=== PATIENT | female | born 1955 | race Caucasian/White ===

== ENCOUNTER → 2023-10-17 07:25 | Outpatient (REF) | payer BC, MEDICARE, SELFPAY ==
[2023-10-17 09:18] LABS: ALT (SGPT) 20 U/L (0-35); AST (SGOT) 22 U/L (14-36); Alkaline Phosphatase 74 U/L (38-126); Total Bilirubin 0.4 mg/dl (0.2-1.3); Total Protein 6.4 g/dl (6.3-8.2)
[2023-10-17 09:43] LABS: Hepatitis B Surface Antigen Negative (Negative)
[2023-10-17 10:00] LABS: Hepatitis B Surface Antibody Negative; Hepatitis C Antibody Negative (Negative)
[2023-10-17 10:26] LABS: Hepatitis A Antibody, Total Negative (Negative)
== END ==
LOC: REG 07:25
PROVIDERS: ATTENDING PHYSICIAN Internal Medicine
DX: K76.0 Fatty (change of) liver, not elsewhere classified (principal)
CPT/HCPCS: 36415; 80076; 86706; 86708; 86803; 87340

== ENCOUNTER → 2023-11-21 06:38 | Day surgery (SDC) | payer BC, SELFPAY | LOC: GI 06:38 | PROVIDERS: ATTENDING PHYSICIAN Internal Medicine | DX: Z12.11 Encounter for screening for malignant neoplasm of colon (principal); Z86.010 Personal history of colon polyps; K57.30 Diverticulosis of large intestine without perforation or abscess without bleeding; K64.4 Residual hemorrhoidal skin tags; K62.1 Rectal polyp | CPT/HCPCS: 45380; 88305 ==

== ENCOUNTER → 2023-12-04 08:04 | Outpatient (REF) | payer BC, SELFPAY | LOC: HWRCS 08:04 | PROVIDERS: ATTENDING PHYSICIAN Nuclear Medicine Nuclear Cardiology; FAMILY PHYSICIAN Physician Assistant Medical | DX: I10 Essential (primary) hypertension (principal); R94.31 Abnormal electrocardiogram [ECG] [EKG]; E78.2 Mixed hyperlipidemia | CPT/HCPCS: 93306 ==

== ENCOUNTER → 2024-04-29 14:00 | Outpatient (REF) | payer BC, SELFPAY | LOC: HWRAD 14:00 | PROVIDERS: ATTENDING PHYSICIAN Nurse Practitioner Family; FAMILY PHYSICIAN Physician Assistant Medical | DX: Z12.31 Encounter for screening mammogram for malignant neoplasm of breast (principal); Z78.0 Asymptomatic menopausal state | CPT/HCPCS: 77063; 77067; 77080 ==

== ENCOUNTER 2024-05-19 11:56 | Emergency (ER) | payer BC, SELFPAY ==
[2024-05-19 12:06] VITALS: BP 144/91
[2024-05-19 14:59] VITALS: BMI 38.1
--- NOTE | 2024-05-19 15:16 | ED.GENMED ---
History of Present Illness
General
Chief Complaint: Skin Problem
Source: patient
Time Seen by Provider: 05/19/24 14:57
History of Present Illness
History of Present Illness:
This patient is a very pleasant 68-year-old female presents to the emergency department with complaints of a rash that started on her about May 12. Incidentally, patient did receive a COVID-vaccine in the right upper extremity and a flu vaccine
in the left upper extremity May 08 without incident. She notes that she was stung by a wasp at the right middle finger earlier on 05 12 and took Benadryl and by the time she woke up those symptoms were gone. However, later in the day on May
, she noticed the gradual onset of the circular shaped rash in the right antecubital fossa. She describes it as a 'red and bumpy', and initially was itchy. Then, on May 14, she developed a similar rash on the right anterior lower torso area.
She wonders whether or not this is related to contact that she made with the right cubital fossa with the torso area when she was taking an Epsom salt bath. The torso area is also now slightly itchy. She denies associated fever, nausea, vomiting,
dyspnea, lip or tongue swelling, change in swallowing, change in speech, chest pain, travel, sick contacts, new medications. Patient notes that she is outside often but denies knowledge of recent tick bites. Patient states she has had an
anaphylactic reaction in the past and this is not consistent with those prior symptoms. She has noted mild chills this typically just in the evenings without associated fever.
Past History
Past History
ED Past Medical History: HTN and Hypercholesterolemia
ED Past Surgical History: Orthopedic and Other (Cataract)
Social History
Tobacco: Non-smoker
Alcohol: Occasional
Drug: None
Personal:
Living: with family
Phy Exam
Physical Exam
Physical Exam:
GENERAL: Alert , in no apparent distress
EYE: pupils equal and reactive, right pupil mildly asymmetric which is chronic status post prior surgery
NECK: Supple, no significant adenopathy.
ENT: o/p clr, mmm.
CARDIAC: Regular rate and rhythm .
LUNGS: Clear breath sounds bilaterally, no acute respiratory distress, no wheezes/rales/rhonchi
ABDOMEN: Soft, without focal tenderness, no r/g, no cvat
NEUROLOGICAL: Alert and oriented, no focal neuro deficits
SKIN: Warm and dry, skin intact. There is a semicirc maculopapular rash with ?sl central clearing noted R antecub fossa, sl scaly...also noted at R lower torso,maculopap, without scaling. No purpura/petechiae, no
warmth/fluctuance/crepitus/streaking/blistering or other abnl
MUSCULOSKELETAL: No edema, well perfused.
PSYCH: Normal and appropriate interaction.
Course
Orders/Labs/Results
Orders:
Orders
05/19/24 15:42
Lyme Progressive Urgent
Vital Signs
Initial and Last Documented VS:
Initial Vital Signs
Temp Pulse Resp BP Pulse Ox
97.7 F 68 18 144/91 95
05/19/24 12:06 05/19/24 12:06 05/19/24 12:06 05/19/24 12:06 05/19/24 12:06
Last Documented Vital Signs
Temp Pulse Resp BP Pulse Ox
97.7 F 68 18 144/91 95
05/19/24 12:06 05/19/24 12:06 05/19/24 12:06 05/19/24 12:06 05/19/24 12:06
*Critical Care Note
Total Time (30-74mins, 75-104mins- exclusive of procedures): Not Applicable
Update Note
Update Note:
Patient presents to the Emergency Department with new rash
Number and Complexity of Problems Addressed at the Encounter
� Chronic conditions affecting care:
� Acute Exacerbation and/or Progression of Chronic Illness:
� Differential Diagnosis includes: But not limited to tinea, eczema, cellulitis, Lyme disease, nonspecific dermatitis, etc. etc.
Amount and/or Complexity of Data to be Reviewed and Analyzed
� I performed an independent evaluation of and my interpretation is:
EKG:
CT:
Xrays:
Laboratory Studies:
Other:
� Review of other/old records reveals:
� Clinical information was obtained by an independent historian:
� Prescriptions/Medications Considered but not given:
� Further testing considered but not performed:
Risk of Complications and/or Morbidity or Mortality of Patient Management
� Social determinants of health affecting care:
� Discussion with other providers (PCP, Hospitalists, Consultants, etc):
� Escalation of care including admission/observation vs risk of discharge considered: Lyme test ordered although I would consider less likely of a diagnosis, will await test results patient aware that these test results pending
over the next few days and will follow-up on results. Exam most consistent with a nonspecific dermatitis, no signs or symptoms to suggest acute serious rash such as T EN, anaphylaxis, Henry-Luis's, etc. Will prescribe short course of steroids
and encourage close follow-up.
ED Attending Note
-
Portions of this chart may have been created with voice recognition software.� Occasional wrong word or��sound alike� substitutions may have occurred due to the inherent limitations of voice recognition software.
Discharge Plan
Departure
Patient Disposition: Home (Routine Discharge)
Date of Disposition: 05/19/24
Time of Disposition: 15:22
Patient with high blood pressure during this ER visit?: Yes
Condition: Good
Discharge Problem:
Dermatitis
Instructions: Skin Rash ED, BLOOD PRESSURE
Prescriptions:
New
prednisone 50 mg tablet
50 mg PO DAILY Qty: 5 0RF
No Action
lovastatin 40 MG tablet
40 mg PO QPM
propranolol 80 mg Tablet
80 mg PO HS
calcium carbonate-vitamin D3 600 mg-5 mcg (200 unit) Tablet
1 tab PO DAILY
magnesium 250 mg Tablet
250 mg PO DAILY
turmeric 400 mg Capsule
400 mg PO DAILY
mupirocin 2 % ointment
1 applic topical BID Qty: 1 0RF
propranolol 60 mg Tablet
60 mg PO DAILY
aspirin 325 mg tablet
325 mg PO DAILY Qty: 1 0RF
Rx Instructions:
Take with food
cefadroxil 500 mg capsule
500 mg PO BID Qty: 14 0RF
Rx Instructions:
*Take w/ food
*Take w/ probiotic
*POST-OP USE
dexamethasone 4 mg tablet
4 mg PO BID Qty: 6 0RF
Rx Instructions:
take with food
post-op use only
docusate sodium [Colace] 100 mg capsule
100 mg PO BID Qty: 1 0RF
gabapentin 300 mg capsule
300 mg PO TID Qty: 30 0RF
hydrocodone-acetaminophen 5-325 mg tablet
1 tab PO Q6H PRN (Reason: 1 tab moderate pain or 2 if severe) Qty: 30 0RF
Rx Instructions:
Dx orthopedic surgery
ongoing therapy
meloxicam 15 mg tablet
15 mg PO DAILY Qty: 14 0RF
Rx Instructions:
take with food
post-op
magnesium hydroxide [Milk of Magnesia] 400 mg/5 mL suspension
30 ml PO HS PRN (Reason: Constipation) Qty: 1 0RF
ondansetron [ondansetron] 4 mg tablet,disintegrating
4 mg PO Q6H PRN (Reason: n/v) Qty: 20 0RF
Rx Instructions:
take 1/2h b/f pain med if recurrent nausea
allow to dissolve in mouth w/o water
sennosides [Senokot] 8.6 mg tablet
17.2 mg PO BID Qty: 2 0RF
Saccharomyces boulardii [Florastor] 250 mg capsule
250 mg PO BID Qty: 1 0RF
Referrals:
Sakshi Crockett PA [Family Provider] - Tomorrow
Activity Restrictions/Additional Instructions:
IF YOU DEVELOP SWELLING, INCREASING/NEW RASH, FEVER, TROUBLE BREATHING, TROUBLE SWALLOWING, OR OTHER WORRISOME SIGNS, GO TO THE ER IMMEDIATELY!
Interventions
Interventions:
*Risk Screen - Suicide Last Done: 05/19/24 12:06
*General Assessment Last Done: 05/19/24 12:06
*Neglect/Abuse Screening Last Done: 05/19/24 12:06
ED- Fall Risk Assessment Last Done: 05/19/24 14:59
*ED COVID-19 Vaccine History Last Done: 05/19/24 14:59
*Nursing Disposition Last Done: 05/19/24 15:46
ED-Skin Assessment Last Done: 05/19/24 15:45
Discharge Date and Time
Discharge Date/Time: 05/19/24 15:47
Print Language: PERSIAN
[2024-05-20 11:48] LABS: Lyme Antibody Screen, EIA Negative (Negative)
== END 2024-05-19 15:47 | disposition home or self-care (01) ==
LOC: EMR 11:56
PROVIDERS: EMERGENCY PHYSICIAN Emergency Medicine; FAMILY PHYSICIAN Physician Assistant Medical
DX: L30.9 Dermatitis, unspecified (principal); I10 Essential (primary) hypertension; E78.00 Pure hypercholesterolemia, unspecified
CPT/HCPCS: 99283; 86618

== ENCOUNTER → 2025-05-14 08:50 | Outpatient (REF) | payer BC, SELFPAY | LOC: HWWDC 08:50 | PROVIDERS: ATTENDING PHYSICIAN Nurse Practitioner Family; FAMILY PHYSICIAN Physician Assistant Medical | DX: Z12.31 Encounter for screening mammogram for malignant neoplasm of breast (principal) | CPT/HCPCS: 77063; 77067 ==